=== PATIENT | female | born 1975 | race Caucasian/White ===

== ENCOUNTER 2024-04-14 09:11 | Day surgery (SDC) | payer OTHER ==
[~2024-04-14 09:11] MED LIST: CLINDAMYCIN-D5W 900 MG/50 ML*** 900 MG/50 ML BAG IV SCH
[2024-04-14] MEDS ORDERED: Lactated Ringers 1,000 ML IV ONE (09:40)
[2024-04-14] MEDS ORDERED: CLINDAMYCIN-D5W 900 MG/50 ML*** 900 MG/50 ML BAG IV ONE (09:40)
[2024-04-14 09:42] LABS: HCG URINE TEST NEGATIVE (NEGATIVE)
[2024-04-14] MEDS: Lactated Ringers 1,000 ML IV ONE (09:45)
[2024-04-14] MEDS: CLINDAMYCIN-D5W 900 MG/50 ML*** 900 MG/50 ML BAG IV ONE (09:46)
[2024-04-14 10:34] LABS: Absolute Neutrophil Ct (ANC) 3.32 x10^3/uL (1.56-6.13); BASOPHIL % 0.7 % (0.1-1.2); Basophil (Absolute #) 0.04 x10^3/uL (0.01-0.08); Eosinophil % 2.6 % (0.7-5.8); Eosinophil (Absolute #) 0.15 x10^3/uL (0.04-0.36); Hematocrit 35.3 % (34.1-44.9); Hemoglobin 11.2 g/dL (11.2-15.7); IMMATURE GRAN # 0.01 x10^3u/L (0.001-0.031); IMMATURE GRAN % 0.2 % (0.001-0.429); Mean Cell Volume 96.4 fL (79.4-94.8); Mean Corpuscular Hemoglobin 30.6 pg (25.6-32.2); Mean Corpuscular Hgb Concent. 31.7 g/dL (32.2-35.5); Mean Platelet Volume 9.9 fL (9.4-12.3); Monocyte (Absolute #) 0.36 x10^3/uL (0.24-0.86); Monocytes % 6.1 % (4.7-12.5); Neutrophil % 56.4 % (34.0-71.1); Platelet Count 226 x10^3/uL (182-369); Red Blood Count 3.66 x10^6/uL (3.93-5.22); Red Cell Distribution Width 12.2 % (11.7-14.4); White Blood Count 5.9 x10^3/uL (3.98-10.04)
[2024-04-14] MEDS ORDERED: EXPAREL 133 MG/10 ML VIAL IJ ONE (10:40)
[2024-04-14] MEDS ORDERED: Versed 2 MG/2 ML Injection ONE ×2 (10:40→11:45)
[2024-04-14] MEDS ORDERED: Marcaine 0.5%/Epinephrine 10 ML ONE (10:42)
[2024-04-14 10:48] LABS: ANION GAP 11.5 MEQ/L (5-15); BILIRUBIN,TOTAL 0.2 mg/dL (0.2-1.3); Calcium 9.1 mg/dL (8.4-10.2); Creatinine 1 1.16 mg/dL (0.52-1.04); EST GLOMERULAR FILTRATION RATE 58.5 ML/MIN; Potassium 4.1 mmol/L (3.5-5.1); Total Protein 7.2 g/dL (6.3-8.2)
[2024-04-14] MEDS ORDERED: SOD CITRATE-CITRIC ACID SOLN ONE (10:48)
[2024-04-14] MEDS ORDERED: Reglan 10 MG/2 ML ONE (10:48)
[2024-04-14] MEDS ORDERED: Pepcid 20 MG VIAL IV ONE (10:48)
[2024-04-14] MEDS ORDERED: Quelicin Fliptop 200 MG/10 ML ONE (10:50)
[2024-04-14] MEDS ORDERED: ROCURONIUM BROMIDE IV ONE (10:50)
[2024-04-14] MEDS ORDERED: DIPRIVAN 200 MG/20 ML IV ONE (10:50)
[2024-04-14] MEDS ORDERED: Zofran 4 MG/2 ML VIAL ONE (10:50)
[2024-04-14] MEDS ORDERED: Decadron 4 MG INJ ONE (10:50)
[2024-04-14] MEDS ORDERED: SOD CITRATE-CITRIC ACID SOLN PO ONE (10:51)
[2024-04-14] MEDS: Pepcid 20 MG VIAL IV ONE (10:53)
[2024-04-14] MEDS: Reglan 10 MG/2 ML IV ONE (10:53)
[2024-04-14] MEDS ORDERED: MARCAINE 0.5%-EPI 1:200,000 VL IJ ONE (13:26)
[2024-04-14] MEDS ORDERED: SUBLIMAZE 100 MCG/2 ML ONE ×2 (14:03→15:53)
[2024-04-14] MEDS ORDERED: Ephedrine Sulfate 50 MG/ML ONE (14:13)
[2024-04-14] MEDS ORDERED: BRIDION 200MG/2ML IV ONE (14:51)
--- NOTE | 2024-04-14 15:05 | XRAY ---
Indication: Left Achilles tendon detachment, debridement, and reattachment. Allen's resection. Intraoperative fluoroscopy provided for 40 seconds. 8 digital spot images submitted for interpretation ultimately demonstrates partial resection posterior calcaneus with 2 tunnel radiolucencies. Correlate with intraoperative findings/report.
[2024-04-14] MEDS ORDERED: Hydromorphone 1 mg/ml Injection ONE (15:53)
[2024-04-14 16:52] VITALS: RESP 18; TEMP 97.3; O2SAT 99
[2024-04-14 17:02] VITALS: BP 121/72; PULSE 75
--- NOTE | 2024-04-15 12:03 | XRAY ---
40 seconds of fluoroscopy was used in surgery for a left Achilles tendon detachment, debridement, and reattachment. Allen's resection.
--- NOTE | 2024-04-16 12:02 | OP ---
SURGERY DATE/TIME: 04/14/2024 4427 - [id number] PREOPERATIVE DIAGNOSES: 1) Left ankle pain. 2) Insertional Achilles tendinitis. 3) Equinus. 4) Posterior superior calcaneal exostosis. POSTOPERATIVE DIAGNOSES: 1) Left ankle pain. 2) Insertional Achilles tendinitis. 3) Equinus. 4) Posterior superior calcaneal exostosis. PROCEDURES: 1) Achilles tendon detachment with debridement. 2) Posterior superior calcaneal exostectomy. 3) Repair and reattachment of Achilles tendon, left lower extremity. SURGEON: Tony Sloan DPM FRYLINE ATTENDANT: None. ANESTHESIA: General with a preoperative popliteal and saphenous block. See anesthesia report for details. HEMOSTASIS: Thigh tourniquet set to 325 mmHg for a total of 50 total tourniquet minutes. ESTIMATED BLOOD LOSS: Approximately 4 mL. MATERIALS: 4-0 Monocryl, 3-0 nylon, 2-0 Vicryl, two 2.9 JuggerKnots with BroadBand to two 4.5 Quattro Link, a 4 x 3 Tapestry. INDICATIONS: The patient is a very pleasant 49-year-old female who is very well known to my service for her pain to the insertion of the Achilles tendon and plantars fasciitis. The patient has had this pain for quite some time. She has tried multiple modalities of treatment and has failed all conservative modalities at this time including, but not limited to, injections, physical therapy, night splint, stretching exercises, activity modifications. From that standpoint, she has failed these modalities and wishes to proceed with surgical intervention at this time. The patient had an MRI obtained demonstrating a significant amount of insertional pathology at the insertion of the left Achilles tendon. She also does have a good bit of bone marrow edema at the tuber of the calcaneus. From that standpoint, options were discussed and the patient opted to proceed with surgical intervention at this time. The patient understands all risks, complications, and benefits of surgical intervention at this time including, but not limited to, infection, hematoma, seroma, possibility of delayed wound healing, non-wound healing, possible need for further surgical intervention at a later date, possible rupture of Achilles tendon, and possible need for further care. The patient understands all this and wishes to proceed. Plenty of time was allowed for the patient to ask questions which were answered to her apparent satisfaction. At this time, we decided to proceed. DESCRIPTION OF PROCEDURE AND FINDINGS: The patient was brought into the PACU prior to the procedure and provided a popliteal and saphenous block. See anesthesia report for details. The patient was then brought into the operating room and left on the cart and placed under general anesthesia while on the cart. She was then flipped to a prone position carefully, and well-padded thigh tourniquet was applied to the patient's thigh and set to 325 mmHg. The left lower extremity was then prepped and draped in the typical sterile fashion and lowered onto the surgical field. At this time, attention was directed to the midline of the Achilles tendon where under fluoroscopic guidance an incision was made down the midline through the level of the paratenon and to the level of the Achilles tendon. At that point, an inverted C incision was made through the Achilles tendon, reflecting the 2 flaps of the Achilles tendon medially and laterally respectively. From that standpoint, the calcaneal tuber was easily seen and the spurs were identified. Under fluoroscopic guidance, a 31 mm sagittal saw was utilized to resect the posterior calcaneal spur as well as the Allen's deformity. Once an adequate amount of bone was resected, decision was made to utilize a PowerRasp to smooth down the area of the bone so that there were no prominences palpable. From that standpoint, copious amounts of sterile saline were utilized to flush the surgical site. The tendon then was inspected for any calcifications within the tendon, which were removed and handed off field at this time for pathological assessment. Following this, a 2.9 JuggerKnot was introduced into the proximal row and then the suture needles were then reflected out at the midsubstance of the tendon. Once this occurred, the distal row was drilled utilizing the 4.5 Quattro Link and anchoring this into the footprint of the Achilles insertion with the foot plantarflexed approximately 45 degrees relatively to the longitudinal access of the leg. This was checked under fluoroscopic guidance. Radiolucencies were identified within the calcaneus and the apposition of the tendon to bone was adequate at this time. Following this, the central aspect of the tendon was sutured utilizing a convergence stitch with an interlocking suture with 2-0 Vicryl. Once this was performed, a 4 x 3 Tapestry was applied to the tendon per architecture professor's specification utilizing 4-0 Monocryl. Following that, the paratenon was then repaired using 4-0 Monocryl once again in a simple interrupted-type fashion. The subcutaneous skin edges were coapted utilizing once again 4-0 Monocryl in a simple buried interrupted-type fashion. Then, 4-0 nylon was utilized to coapt the skin edges in a horizontal mattress-type fashion, everting the skin edges slightly. Following this, a dressing consisting of Betadine, Adaptic, 4 x 4, Kerlix, ABD, cast padding and a well-padded posterior splint with the foot 45 degrees relative to longitudinal axis of the leg was applied. The patient was then reversed from anesthesia and returned to the postanesthesia care unit with vital signs stable and vascular status intact. The patient handled the anesthesia as well as the procedure without significant complication. Postoperative orders as indicated in the patient's discharge chart.
== END 2024-04-14 17:02 | disposition home or self-care (01) ==
LOC: SDC 09:11
PROVIDERS: ATTEND Podiatrist Foot & Ankle Surgery
DX: M76.62 Achilles tendinitis, left leg (principal); M25.572 Pain in left ankle and joints of left foot; M21.962 Unspecified acquired deformity of left lower leg; M77.32 Calcaneal spur, left foot
CPT/HCPCS: 27654; 28118; 36415; 73650; 76000; 76937; 80053; 81025; 85025; C1713; C1763; J0330; J1100; J1170; J2250; J2405; J2704; J3010; A9270-GY